=== PATIENT | female | born 1975 | race Two or more races ===

== ENCOUNTER 2020-04-17 10:39 | Inpatient (IN) | payer OTHER ==
[~2020-04-17] VITALS: Ht 170.2 cm; Wt 105.3 kg
[~2020-04-17 10:39] MED LIST: CIPR500T3 PO; METR-90 PO; OXYC5TAB3 PO
--- NOTE | 2020-04-17 10:50 | NUR ---
PT BIB EMS FOR ABDOMINAL PAIN. PT HAD LAP RICARDO 3 WEEKS AGO. PT CO LOWER ABDOMINAL PAIN, NO N/V. DENIES DIFFICULTY URINATING. PT DENIES CP, COUGH, SOB. PT ON CIPRO, FLAGY. 100 FENT AND 4 ZOFRAN GIVEN BY EMS. 3 SURGICAL BAXTER ON ABDOMEN
[2020-04-17] MEDS ORDERED: SODIUM CHLORIDE FLUSH 10ML SYR IVF ONE (11:00)
[2020-04-17] MEDS ORDERED: SODIUM CHLORIDE 0.9% 1,000ML IVBOLUS ONE (11:00)
[2020-04-17] MEDS ORDERED: ONDANSETRON 2MG/ML, 2ML IVPush ONE (11:00)
[2020-04-17] MEDS ORDERED: ONDANSETRON 2MG/ML, 2ML ONE (11:05)
[2020-04-17] MEDS ORDERED: MORPHINE SULFATE 4 MG/ML, 1ML ONE ×2 (11:06→12:27)
[2020-04-17] MEDS: MORPHINE SULFATE 4 MG/ML, 1ML IVPush PRN ×2 (11:09→12:28)
--- NOTE | 2020-04-17 11:14 | NUR ---
AT BEDSIDE. PT TENDER TO PALIPATION ON LLQ. MEDICATED FOR PAIN.
[2020-04-17 11:24] LABS: BASOPHILS % (AUTO) 1 % (0-1); EOSINOPHILS % (AUTO) 2 % (1-7); LYMPHOCYTES % (AUTO) 17 % (22-44); MEAN CORPUSCULAR HEMOGLOBIN 18.9 pg (27.0-34.8); MEAN CORPUSCULAR HGB CONC 30.5 g/dL (32.4-35.8); MEAN PLATELET VOLUME 8.7 fL (7.4-10.4); MONOCYTES % (AUTO) 5 % (2-9); PLATELET COUNT 538 x10^3/uL (130-400); RED BLOOD COUNT 5.42 x10^6/uL (3.82-5.3); RED CELL DISTRIBUTION WIDTH 20.7 % (9.6-15.2)
[2020-04-17 11:31] LABS: ALBUMIN 3.1 g/dL (3.4-5.0); ANION GAP 8 mmol/L (5-15); CALCIUM 8.9 mg/dL (8.5-10.1); CHLORIDE 109 mmol/L (98-107); CREATININE 0.55 mg/dL (0.55-1.02)
--- NOTE | 2020-04-17 11:42 | NUR ---
APPLIED 2 L O2 WHILE PT SLEEPING. PAIN BETTER
[2020-04-17 12:02] LABS: MD YES
[2020-04-17 12:03] LABS: BASOS% (MANUAL) 1 % (0-1); EOS#(MANUAL) 0.21 x10^3/uL (0.0-0.4); EOS% (MANUAL) 2 % (1-7); LYMPH#(MANUAL) 0.94 x10^3/uL (1-3.4); LYMPHS% (MANUAL) 9 % (22-44); MONOS#(MANUAL) 0.21 x10^3/uL (0.3-2.7); MONOS% (MANUAL) 2 % (2-9); SEG#(MANUAL) 8.94 x10^3/uL (1.8-6.8); SEGS% (MANUAL) 86 % (42-75)
[2020-04-17] MEDS ORDERED: OMNIPAQUE 350 MG/ML, 100ML BOTTLE ONE (12:03)
[2020-04-17 12:04] LABS: ANISOCYTOSIS 2+; HYPOCHROMIA 2+; MICROCYTOSIS 1+; OVALOCYTES 1+
[2020-04-17 12:05] LABS: <PLATELET ESTIMATE> INCREASED; <PLT MORPHOLOGY> NORMAL PLT MORPH
--- NOTE | 2020-04-17 12:24 | NUR ---
PT AMBULATED TO BATHROOM W STEADY GAIT. UA SENT.
--- NOTE | 2020-04-17 12:34 | NUR ---
MEDICATED FOR PAIN. PT IS MOANING AND GRIMACING. PLAN TO ADMIT. VSS
[2020-04-17] MEDS ORDERED: CIPROFLOXACIN/PMX 400MG/200ML 200 ML ONE (12:48)
[2020-04-17] MEDS ORDERED: METRONIDAZOLE PMX 500MG/100ML 100 ML ONE (12:48)
[2020-04-17 12:58] LABS: MICROSCOPIC NOT IND
[2020-04-17] MEDS ORDERED: CIPROFLOXACIN/PMX 400MG/200ML 100 ML IVPB ONE (13:00)
[2020-04-17] MEDS ORDERED: METRONIDAZOLE PMX 500MG/100ML 100 ML IVPB ONE (13:00)
--- NOTE | 2020-04-17 13:14 | NUR ---
REPORT TO [facility]
[2020-04-17 13:58] VITALS: BP 145/74
[2020-04-17] MEDS ORDERED: LABETALOL 5MG/ML, 20ML IVPush PRN (14:30)
[2020-04-17] MEDS ORDERED: morphine SULFATE 10 MG/ML, 1ML IVPush PRN (14:30)
[2020-04-17] MEDS ORDERED: ENALAPRILAT 1.25 MG/ML, 2ML IVPush PRN (14:30)
[2020-04-17] MEDS ORDERED: ACETAMINOPHEN 325 MG TABLET PO PRN (14:30)
[2020-04-17] MEDS ORDERED: POLYETHYLENE GLYCOL 17 GM PACKET PO PRN (14:30)
[2020-04-17] MEDS ORDERED: ONDANSETRON ODT 4 MG PO PRN (14:30)
[2020-04-17] MEDS: METRONIDAZOLE PMX 500MG/100ML 100 ML IV SCH ×2 (14:52→20:21)
[2020-04-17] MEDS: POTASSIUM CHLORIDE 20 MEQ in SODIUM CHLORIDE 0.45% 1,000 ML IV SCH (16:09)
[2020-04-17 17:54] VITALS: BP 147/76
[2020-04-17] MEDS: ENOXAPARIN 40 MG/0.4 ML SQ SCH (20:21)
[2020-04-17] MEDS: ONDANSETRON 2MG/ML, 2ML IVPush PRN (22:11)
[2020-04-18] MEDS: KETOROLAC 30 MG/1 ML IV PRN ×3 (00:01→14:35)
[2020-04-18] MEDS: CIPROFLOXACIN/PMX 400MG/200ML 200 ML IV SCH ×2 (01:00→14:29)
[2020-04-18 01:03] VITALS: BP 120/77
[2020-04-18] MEDS: METRONIDAZOLE PMX 500MG/100ML 100 ML IV SCH ×3 (04:58→19:59)
[2020-04-18] MEDS: POTASSIUM CHLORIDE 20 MEQ in SODIUM CHLORIDE 0.45% 1,000 ML IV SCH ×2 (04:58→18:35)
[2020-04-18 05:54] LABS: ANION GAP 8 mmol/L (5-15); CALCIUM 8.6 mg/dL (8.5-10.1); CHLORIDE 106 mmol/L (98-107); CREATININE 0.51 mg/dL (0.55-1.02)
[2020-04-18 05:55] LABS: BASOPHILS % (AUTO) 1 % (0-1); EOSINOPHILS % (AUTO) 2 % (1-7); LYMPHOCYTES % (AUTO) 18 % (22-44); MEAN CORPUSCULAR HEMOGLOBIN 18.4 pg (27.0-34.8); MEAN PLATELET VOLUME 8.7 fL (7.4-10.4); MONOCYTES % (AUTO) 6 % (2-9); NEUTROPHILS % (AUTO) 73 % (42-75); PLATELET COUNT 500 x10^3/uL (130-400); RED CELL DISTRIBUTION WIDTH 20.6 % (9.6-15.2)
[2020-04-18 06:24] LABS: MEAN CORPUSCULAR HGB CONC 29.5 g/dL (32.4-35.8)
[2020-04-18 06:43] LABS: MD SCAN
[2020-04-18 06:54] VITALS: BP 127/77
[2020-04-18] MEDS: SENNA/DOCUSATE TABLET PO SCH (08:09)
[2020-04-18 12:23] VITALS: BP 160/84
[2020-04-18] MEDS: IRON SUCROSE COMPLEX 100MG/5ML IV SCH (12:32)
[2020-04-18] MEDS: HYDROmorphone 1 MG/ML, 1ML INJ IV PRN ×3 (12:32→18:39)
[2020-04-18 12:56] LABS: BASOPHILS % (AUTO) 1 % (0-1); EOSINOPHILS % (AUTO) 2 % (1-7); LYMPHOCYTES % (AUTO) 18 % (22-44); MEAN CORPUSCULAR HEMOGLOBIN 18.5 pg (27.0-34.8); MEAN PLATELET VOLUME 8.9 fL (7.4-10.4); MONOCYTES % (AUTO) 7 % (2-9); NEUTROPHILS % (AUTO) 73 % (42-75); PLATELET COUNT 510 x10^3/uL (130-400); RED BLOOD COUNT 5.55 x10^6/uL (3.82-5.3); RED CELL DISTRIBUTION WIDTH 20.6 % (9.6-15.2)
[2020-04-18 13:34] LABS: MD NO; MEAN CORPUSCULAR HGB CONC 29.9 g/dL (32.4-35.8)
[2020-04-18] MEDS ORDERED: OMNIPAQUE 350 MG/ML, 100ML BOTTLE ONE (14:27)
[2020-04-18 18:45] VITALS: BP 130/74
[2020-04-18] MEDS: ENOXAPARIN 40 MG/0.4 ML SQ SCH (19:59)
[2020-04-18] MEDS: ONDANSETRON 2MG/ML, 2ML IVPush PRN (22:23)
[2020-04-19 01:09] VITALS: BP 128/78
[2020-04-19] MEDS: CIPROFLOXACIN/PMX 400MG/200ML 200 ML IV SCH ×2 (02:19→14:44)
[2020-04-19] MEDS: METRONIDAZOLE PMX 500MG/100ML 100 ML IV SCH ×3 (04:58→20:32)
[2020-04-19 05:56] LABS: BASOPHILS % (AUTO) 1 % (0-1); EOSINOPHILS % (AUTO) 0 % (1-7); LYMPHOCYTES % (AUTO) 12 % (22-44); MEAN CORPUSCULAR HEMOGLOBIN 18.7 pg (27.0-34.8); MEAN PLATELET VOLUME 8.7 fL (7.4-10.4); MONOCYTES % (AUTO) 5 % (2-9); NEUTROPHILS % (AUTO) 82 % (42-75); PLATELET COUNT 536 x10^3/uL (130-400); RED BLOOD COUNT 5.37 x10^6/uL (3.82-5.3); RED CELL DISTRIBUTION WIDTH 20.4 % (9.6-15.2)
[2020-04-19 06:02] LABS: MEAN CORPUSCULAR HGB CONC 29.8 g/dL (32.4-35.8)
[2020-04-19 06:03] LABS: MD NO
[2020-04-19 06:06] LABS: ALANINE AMINOTRANSFERASE 12 U/L (12-78); ALBUMIN 3.1 g/dL (3.4-5.0); ANION GAP 5 mmol/L (5-15); CALCIUM 8.9 mg/dL (8.5-10.1); CHLORIDE 104 mmol/L (98-107); CREATININE 0.55 mg/dL (0.55-1.02)
[2020-04-19 06:08] LABS: ALKALINE PHOSPHATASE 81 U/L (45-117); BILIRUBIN,TOTAL 0.5 mg/dL (0.2-1.0); TOTAL PROTEIN 7.5 g/dL (6.4-8.2)
[2020-04-19 06:57] VITALS: BP 128/77
[2020-04-19] MEDS: POTASSIUM CHLORIDE 20 MEQ in SODIUM CHLORIDE 0.45% 1,000 ML IV SCH ×2 (09:47→20:32)
[2020-04-19] MEDS: SENNA/DOCUSATE TABLET PO SCH (09:48)
[2020-04-19] MEDS: IRON SUCROSE COMPLEX 100MG/5ML IV SCH (09:49)
[2020-04-19] MEDS: HYDROmorphone 1 MG/ML, 1ML INJ IV PRN ×2 (10:18→13:40)
[2020-04-19] MEDS: KETOROLAC 30 MG/1 ML IV PRN (10:55)
[2020-04-19] MEDS ORDERED: MAGNESIUM HYDROXIDE 8%, 30ML UDC PO SCH (11:30)
[2020-04-19] MEDS: HYDROcodone/APAP 5/325 TABLET PO PRN (11:59)
[2020-04-19 13:23] VITALS: BP 144/71
[2020-04-19 18:35] VITALS: BP 149/76
[2020-04-19] MEDS: ENOXAPARIN 40 MG/0.4 ML SQ SCH (20:31)
[2020-04-19] MEDS: PANTOPRAZOLE 40 MG IV IVPush SCH (20:31)
[2020-04-20 01:39] VITALS: BP 136/75
[2020-04-20] MEDS: CIPROFLOXACIN/PMX 400MG/200ML 200 ML IV SCH ×2 (01:47→14:59)
[2020-04-20] MEDS: HYDROmorphone 1 MG/ML, 1ML INJ IV PRN ×2 (02:12→05:19)
[2020-04-20 05:22] LABS: BASOPHILS % (AUTO) 1 % (0-1); EOSINOPHILS % (AUTO) 2 % (1-7); LYMPHOCYTES % (AUTO) 20 % (22-44); MEAN CORPUSCULAR HEMOGLOBIN 18.7 pg (27.0-34.8); MEAN PLATELET VOLUME 8.7 fL (7.4-10.4); MONOCYTES % (AUTO) 8 % (2-9); NEUTROPHILS % (AUTO) 70 % (42-75); PLATELET COUNT 547 x10^3/uL (130-400); RED BLOOD COUNT 5.24 x10^6/uL (3.82-5.3); RED CELL DISTRIBUTION WIDTH 20.2 % (9.6-15.2)
[2020-04-20] MEDS: POTASSIUM CHLORIDE 20 MEQ in SODIUM CHLORIDE 0.45% 1,000 ML IV SCH ×2 (05:24→17:56)
[2020-04-20 05:25] LABS: ANION GAP 6 mmol/L (5-15); CALCIUM 8.6 mg/dL (8.5-10.1); CHLORIDE 106 mmol/L (98-107)
[2020-04-20 05:26] LABS: CREATININE 0.47 mg/dL (0.55-1.02)
[2020-04-20 05:30] LABS: MD NO; MEAN CORPUSCULAR HGB CONC 29.7 g/dL (32.4-35.8)
[2020-04-20] MEDS: METRONIDAZOLE PMX 500MG/100ML 100 ML IV SCH ×3 (05:31→20:46)
[2020-04-20 06:47] VITALS: BP 145/75
[2020-04-20] MEDS ORDERED: GABAPENTIN 300 MG CAPSULE PO PRN (08:30)
[2020-04-20] MEDS: SENNA/DOCUSATE TABLET PO SCH (08:33)
[2020-04-20] MEDS: KETOROLAC 30 MG/1 ML IV PRN ×2 (08:33→18:28)
[2020-04-20] MEDS: PANTOPRAZOLE 40 MG IV IVPush SCH (08:33)
[2020-04-20] MEDS: ONDANSETRON 2MG/ML, 2ML IVPush PRN (08:33)
[2020-04-20] MEDS: IRON SUCROSE COMPLEX 100MG/5ML IV SCH (08:33)
[2020-04-20] MEDS: HYDROcodone/APAP 5/325 TABLET PO PRN ×2 (08:34→18:29)
[2020-04-20 15:57] VITALS: BP 115/69
[2020-04-20 18:26] VITALS: BP 138/74
[2020-04-20] MEDS: PANTOPRAZOLE 40MG TABLET PO SCH (20:45)
[2020-04-20] MEDS: ENOXAPARIN 40 MG/0.4 ML SQ SCH (20:46)
[2020-04-21] MEDS: CIPROFLOXACIN/PMX 400MG/200ML 200 ML IV SCH ×3 (01:28→19:23)
[2020-04-21 01:47] VITALS: BP 130/79
[2020-04-21] MEDS: KETOROLAC 30 MG/1 ML IV PRN ×3 (04:34→23:54)
[2020-04-21] MEDS: METRONIDAZOLE PMX 500MG/100ML 100 ML IV SCH ×3 (04:34→20:49)
[2020-04-21] MEDS: HYDROcodone/APAP 5/325 TABLET PO PRN ×3 (04:40→22:00)
[2020-04-21] MEDS: ONDANSETRON 2MG/ML, 2ML IVPush PRN (04:40)
[2020-04-21 04:49] LABS: BASOPHILS % (AUTO) 1 % (0-1); EOSINOPHILS % (AUTO) 3 % (1-7); LYMPHOCYTES % (AUTO) 18 % (22-44); MEAN CORPUSCULAR HEMOGLOBIN 18.8 pg (27.0-34.8); MEAN PLATELET VOLUME 7.8 fL (7.4-10.4); MONOCYTES % (AUTO) 9 % (2-9); NEUTROPHILS % (AUTO) 69 % (42-75); PLATELET COUNT 512 x10^3/uL (130-400); RED BLOOD COUNT 5.04 x10^6/uL (3.82-5.3); RED CELL DISTRIBUTION WIDTH 20.2 % (9.6-15.2)
[2020-04-21 05:01] LABS: ANION GAP 5 mmol/L (5-15); CALCIUM 8.5 mg/dL (8.5-10.1); CHLORIDE 105 mmol/L (98-107); CREATININE 0.53 mg/dL (0.55-1.02)
[2020-04-21 05:48] LABS: MD MORPH REVIEW ONLY; MEAN CORPUSCULAR HGB CONC 29.5 g/dL (32.4-35.8)
[2020-04-21 05:49] LABS: ANISOCYTOSIS 1+; HYPOCHROMIA 1+; MICROCYTOSIS 1+; POLYCHROMASIA 1+
[2020-04-21 05:50] LABS: <PLATELET ESTIMATE> INCREASED; <PLT MORPHOLOGY> NORMAL PLT MORPH
[2020-04-21] MEDS: HYDROmorphone 1 MG/ML, 1ML INJ IV PRN (06:02)
[2020-04-21] MEDS: PANTOPRAZOLE 40MG TABLET PO SCH ×2 (06:02→16:55)
[2020-04-21] MEDS: POTASSIUM CHLORIDE 20 MEQ in SODIUM CHLORIDE 0.45% 1,000 ML IV SCH ×2 (06:04→15:55)
[2020-04-21 06:38] VITALS: BP 154/79
[2020-04-21 06:50] VITALS: BP 150/80
[2020-04-21] MEDS: SENNA/DOCUSATE TABLET PO SCH (08:53)
[2020-04-21] MEDS: IRON SUCROSE COMPLEX 100MG/5ML IV SCH (08:54)
[2020-04-21] MEDS: POTASSIUM CHLORIDE 20 MEQ TAB.ER.PRT PO SCH ×2 (08:54→16:55)
[2020-04-21 12:22] VITALS: BP 152/82
[2020-04-21 19:23] VITALS: BP 141/84
[2020-04-21] MEDS: ENOXAPARIN 40 MG/0.4 ML SQ SCH (20:50)
[2020-04-22 01:13] VITALS: BP 162/88
[2020-04-22] MEDS: HYDROcodone/APAP 5/325 TABLET PO PRN ×3 (02:33→21:26)
[2020-04-22] MEDS: METRONIDAZOLE PMX 500MG/100ML 100 ML IV SCH ×3 (05:21→21:26)
[2020-04-22] MEDS: POTASSIUM CHLORIDE 20 MEQ in SODIUM CHLORIDE 0.45% 1,000 ML IV SCH ×2 (05:21→14:00)
[2020-04-22] MEDS: PANTOPRAZOLE 40MG TABLET PO SCH ×2 (05:21→16:24)
[2020-04-22 05:50] LABS: BASOPHILS % (AUTO) 1 % (0-1); EOSINOPHILS % (AUTO) 3 % (1-7); LYMPHOCYTES % (AUTO) 21 % (22-44); MEAN CORPUSCULAR HEMOGLOBIN 19.1 pg (27.0-34.8); MONOCYTES % (AUTO) 7 % (2-9); NEUTROPHILS % (AUTO) 69 % (42-75); PLATELET COUNT 524 x10^3/uL (130-400); RED BLOOD COUNT 5.21 x10^6/uL (3.82-5.3); RED CELL DISTRIBUTION WIDTH 20.9 % (9.6-15.2)
[2020-04-22 06:00] LABS: ANION GAP 6 mmol/L (5-15); CALCIUM 8.9 mg/dL (8.5-10.1); CHLORIDE 105 mmol/L (98-107); CREATININE 0.49 mg/dL (0.55-1.02)
[2020-04-22 06:32] LABS: MD NO; MEAN CORPUSCULAR HGB CONC 29.9 g/dL (32.4-35.8)
[2020-04-22] MEDS: CIPROFLOXACIN/PMX 400MG/200ML 200 ML IV SCH ×2 (06:42→19:45)
[2020-04-22 06:52] VITALS: BP 143/79
[2020-04-22] MEDS: ONDANSETRON 2MG/ML, 2ML IVPush PRN (09:04)
[2020-04-22] MEDS: SENNA/DOCUSATE TABLET PO SCH (09:57)
[2020-04-22] MEDS: IRON SUCROSE COMPLEX 100MG/5ML IV SCH (09:57)
[2020-04-22] MEDS: KETOROLAC 30 MG/1 ML IV PRN (09:57)
[2020-04-22 15:59] VITALS: BP 153/76
[2020-04-22] MEDS: HYDROmorphone 1 MG/ML, 1ML INJ IV PRN (18:35)
[2020-04-22 18:57] VITALS: BP 162/82
[2020-04-22] MEDS: ENOXAPARIN 40 MG/0.4 ML SQ SCH (21:00)
[2020-04-23 00:10] VITALS: BP 158/71
[2020-04-23] MEDS: HYDROcodone/APAP 5/325 TABLET PO PRN ×2 (03:07→08:02)
[2020-04-23] MEDS: METRONIDAZOLE PMX 500MG/100ML 100 ML IV SCH ×2 (05:00→12:49)
[2020-04-23] MEDS: CIPROFLOXACIN/PMX 400MG/200ML 200 ML IV SCH (06:46)
[2020-04-23] MEDS: PANTOPRAZOLE 40MG TABLET PO SCH (06:46)
[2020-04-23 07:10] VITALS: BP 135/75
[2020-04-23] MEDS: SENNA/DOCUSATE TABLET PO SCH (08:02)
[2020-04-23] MEDS: ONDANSETRON 2MG/ML, 2ML IVPush PRN (08:50)
[2020-04-23] MEDS: POTASSIUM CHLORIDE 20 MEQ in SODIUM CHLORIDE 0.45% 1,000 ML IV SCH ×2 (10:00)
[2020-04-23] MEDS ORDERED: CIPR500T3 PO (12:23)
[2020-04-23] MEDS ORDERED: PANT40TA6 PO (12:23)
[2020-04-23] MEDS ORDERED: ONDA4TAB13 PO (12:23)
[2020-04-23] MEDS ORDERED: METR-90 PO (12:23)
[2020-04-23 12:50] VITALS: BP 131/82
== END 2020-04-23 14:00 | disposition home or self-care (01) | DRG 392 ==
LOC: ED 12:11 → EDIP 12:39 → 4NW 13:29 → 4NE 04-23 05:51 → DCLOUNGE 04-23 13:54
PROVIDERS: ADMIT Hospitalist; ATTEND Hospitalist
DX: K57.32 Diverticulitis of large intestine without perforation or abscess without bleeding (principal); D50.9 Iron deficiency anemia, unspecified; E87.6 Hypokalemia; I10 Essential (primary) hypertension; D47.3 Essential (hemorrhagic) thrombocythemia; Z90.49 Acquired absence of other specified parts of digestive tract; Z88.0 Allergy status to penicillin; Z79.899 Other long term (current) drug therapy; Z79.891 Long term (current) use of opiate analgesic; D72.829 Elevated white blood cell count, unspecified
CPT/HCPCS: 36415; 74177; 80048; 80053; 81003; 82040; 82728; 83540; 83550; 83605; 84466; 84703; 85025; 87040; 96374; 96375; 96376; 99285; G0378; J0744; J1170; J1650; J1756; J1885; J2405; J3480; Q0162; Q9967; C9113; J2270; J7030

== ENCOUNTER 2020-05-11 20:41 | Emergency (ER) | payer OTHER ==
[~2020-05-11] VITALS: Ht 162.6 cm; Wt 68.2 kg
[~2020-05-11 20:41] MED LIST changes: +ONDA4TAB13 PO; +PANT40TA6 PO
--- NOTE | 2020-05-11 20:55 | NUR ---
ERP at bedside to eval.
[2020-05-11] MEDS ORDERED: SODIUM CHLORIDE 0.9% 1,000 ML IV ONE (21:30)
[2020-05-11] MEDS ORDERED: MORPHINE SULFATE 4 MG/ML, 1ML ONE (21:45)
--- NOTE | 2020-05-11 21:51 | NUR ---
Pt medicated for continued RLQ abd pain. Pt placed on 2l nc s/t pain meds. Pt aware of UA. Call light in reach. No further needs expressed.
[2020-05-11] MEDS ORDERED: MORPHINE SULFATE 4 MG/ML, 1ML IVPush ONE (22:00)
[2020-05-11 22:01] LABS: BASOPHILS % (AUTO) 1 % (0-1); EOSINOPHILS % (AUTO) 2 % (1-7); LYMPHOCYTES % (AUTO) 11 % (22-44); MEAN CORPUSCULAR HEMOGLOBIN 22.5 pg (27.0-34.8); MEAN CORPUSCULAR HGB CONC 30.7 g/dL (32.4-35.8); MEAN PLATELET VOLUME 9.3 fL (7.4-10.4); MONOCYTES % (AUTO) 4 % (2-9); NEUTROPHILS % (AUTO) 83 % (42-75); PLATELET COUNT 299 x10^3/uL (130-400); RED BLOOD COUNT 5.62 x10^6/uL (3.82-5.3); RED CELL DISTRIBUTION WIDTH 33.1 % (9.6-15.2)
[2020-05-11 22:14] LABS: ALANINE AMINOTRANSFERASE 12 U/L (12-78); ALBUMIN 3.8 g/dL (3.4-5.0); ANION GAP 7 mmol/L (5-15); CALCIUM 8.8 mg/dL (8.5-10.1); CHLORIDE 107 mmol/L (98-107); CREATININE 0.53 mg/dL (0.55-1.02)
[2020-05-11 22:18] LABS: ALKALINE PHOSPHATASE 59 U/L (45-117); BILIRUBIN,TOTAL 0.5 mg/dL (0.2-1.0); TOTAL PROTEIN 7.7 g/dL (6.4-8.2)
[2020-05-11 22:24] LABS: MD MORPH REVIEW ONLY
[2020-05-11 22:26] LABS: <PLATELET ESTIMATE> ADEQUATE; <PLT MORPHOLOGY> NORMAL PLT MORPH; ANISOCYTOSIS 1+; HYPOCHROMIA 1+; MICROCYTOSIS 1+; TARGET CELLS 1+; TEAR DROPS 1+
--- NOTE | 2020-05-11 22:36 | NUR ---
Pt states pain has improved after meds. Pt up to BR with steady gait to attempt UA.
[2020-05-11] MEDS ORDERED: OMNIPAQUE 350 MG/ML, 100ML BOTTLE ONE (23:00)
[2020-05-11 23:35] LABS: MICROSCOPIC AUTO
--- NOTE | 2020-05-11 23:51 | NUR ---
Pt states pain has improved. Awaiting UA results. Call light in reach. VSS.
[2020-05-12 00:36] VITALS: BP 156/85
== END 2020-05-12 00:39 | disposition home or self-care (01) ==
LOC: ED 21:19
DX: K52.9 Noninfective gastroenteritis and colitis, unspecified (principal); D25.9 Leiomyoma of uterus, unspecified
CPT/HCPCS: 36415; 74177; 80053; 81001; 83690; 84703; 85025; 96361; 96374; 99285; J2270; J7030; Q9967